=== PATIENT | male | born 1935 | race Caucasian/White ===

== ENCOUNTER → 2018-09-01 | Outpatient (CLI) | payer MEDICARE, OTHER ==
[~2018-09-01] MED LIST: Cipro500 MG PO; FAMO40 PO; Flagyl500 MG PO
== END | disposition home or self-care (01) ==
LOC: LAB 12:00 → LAB SHORT 12:00
DX: R30.0 Dysuria (principal); R10.9 Unspecified abdominal pain
CPT/HCPCS: 87086

== ENCOUNTER → 2019-05-06 | Outpatient (CLI) | payer MEDICARE, OTHER ==
[2019-05-07 10:05] LABS: Stool Occult Bld Immuno 1 Negative (NEGATIVE)
[2019-05-07 10:06] LABS: Stool Occult Bld Immuno 2 Negative (NEGATIVE)
== END | disposition home or self-care (01) ==
LOC: LAB 09:33 → LAB SHORT 09:33
PROVIDERS: Internal Medicine Gastroenterology
DX: K57.30 Diverticulosis of large intestine without perforation or abscess without bleeding (principal); D64.9 Anemia, unspecified
CPT/HCPCS: 82274

== ENCOUNTER 2019-10-31 11:34 | Day surgery (SDC) | payer MEDICARE, OTHER ==
[~2019-10-31] VITALS: Ht 177.8 cm; Wt 72.4 kg
[2019-10-31] MEDS ORDERED: TRAM50 PO (12:29)
[2019-10-31] MEDS ORDERED: TAMS.4ER PO (12:29)
== END 2019-10-31 13:37 | disposition home or self-care (01) ==
LOC: ORSCSDS 11:34
PROVIDERS: Anesthesiology
PROC: 3E0R33Z Introduction of Anti-inflammatory into Spinal Canal, Percutaneous Approach (ICD-10-PCS; principal; 2019-10-31 13:15)
DX: M54.16 Radiculopathy, lumbar region (principal); K21.9 Gastro-esophageal reflux disease without esophagitis; Z79.899 Other long term (current) drug therapy
CPT/HCPCS: J1040

== ENCOUNTER → 2019-12-18 | Outpatient (CLI) | payer MEDICARE, OTHER ==
[~2019-12-18] MED LIST changes: +TAMS.4ER PO; +TRAM50 PO
[2019-12-18 15:47] LABS: Adenovirus F 40/41 Not Detected (NOT DETECT); Astrovirus Not Detected (NOT DETECT); Campylobacter Sp Not Detected (NOT DETECT); Cryptosporidium Not Detected (NOT DETECT); Cyclospora Cayetanensis Not Detected (NOT DETECT); E. Coli O157 Not Detected (NOT DETECT); Entamoeba Histolytica Not Detected (NOT DETECT); Enteroaggregative E. coli-EAEC Not Detected (NOT DETECT); Enteropathogenic E. coli-EPEC Not Detected (NOT DETECT); Enterotoxigenic E. coli-ETEC Not Detected (NOT DETECT); Giardia Lamblia Not Detected (NOT DETECT); Norovirus GI/GII Not Detected (NOT DETECT); Plesiomonas Shigelloides Not Detected (NOT DETECT); Rotavirus A Not Detected (NOT DETECT); Salmonella Sp Not Detected (NOT DETECT); Sapovirus Not Detected (NOT DETECT); Shiga Toxin-prod E. coli-STEC Not Detected (NOT DETECT); Shigella/Enteroin E. coli-EIEC Not Detected (NOT DETECT); Vibrio Cholerae Not Detected (NOT DETECT); Vibrio Sp Not Detected (NOT DETECT); Yersinia Enterocolitica Not Detected (NOT DETECT)
== END ==
LOC: LAB 11:32 → LAB SHORT 11:32
PROVIDERS: Internal Medicine Gastroenterology
DX: R19.7 Diarrhea, unspecified (principal)
CPT/HCPCS: 0097U

== ENCOUNTER 2020-04-25 07:31 | Inpatient (IN) | payer MEDICARE, OTHER ==
[~2020-04-25] VITALS: Ht 177.8 cm; Wt 70.9 kg
[~2020-04-25 07:31] MED LIST changes: -FAMO40 PO
[2020-04-25 07:45] LABS: Calcium, Ionized (POC) 1.09 mmol/L (1.10-1.46); Chloride (POC) 104 mmol/L (98-108); Creatinine (POC) 0.9 mg/dL (0.8-1.3); Glucose (ISTAT POC) 158 mg/dL (70-99); Hemoglobin (POC) 13.6 g/dL (13.5-17.5); Potassium (POC) 3.8 mmol/L (3.5-5.5); Sodium (POC) 140 mmol/L (135-148); Total CO2 (POC) 22 mmol/L (21-32)
[2020-04-25 07:51] LABS: Hematocrit 39.7 % (37.0-53.0); Hemoglobin 13.1 g/dL (13.5-17.5); Mean Corpuscular HGB 32.4 pg (26.0-34.0); Mean Corpuscular Volume 98 fL (80-100); Mean Platelet Volume 9.4 fL (9.1-12.4); Platelet Count 187 K/mm3 (150-400); RDW Coefficient Variation 12.4 % (11.7-14.2); RDW Standard Deviation 44.9 fL (35.1-46.3); Red Blood Cell Count 4.04 M/mm3 (4.30-5.90); White Blood Cell Count 6.29 K/mm3 (4.00-11.30)
[2020-04-25 08:07] LABS: International Normalized Ratio 0.99; Prothrombin Time Results 10.6 Sec (9.7-11.5)
[2020-04-25 08:16] LABS: Alanine Aminotransfer (ALT/SGP 19 U/L (12-78); Albumin, Blood 3.5 g/dL (3.4-5.0); Alk Phos 84 U/L (50-136); Anion Gap 8 mmol/L (6-16); Aspartate Aminotrans (AST/SGOT 18 U/L (12-37); Bilirubin, Total 0.4 mg/dL (0.1-1.0); Blood Urea Nitrogen 18 mg/dL (8-24); Bun/Creatinine Ratio 20.1 (12.0-20.0); CHOL/HDL RATIO 4.4; CO2, Blood 25 mmol/L (21-32); Calcium, Blood 8.7 mg/dL (8.5-10.1); Chloride, Blood 108 mmol/L (98-108); Cholesterol 221 mg/dL (50-200); Globulin, Blood 3.5 g/dL (2.2-4.0); Glomerular Filtration Rate >60 (60-); Glucose, Blood 156 mg/dL (70-99); HDL Cholesterol 50 mg/dL (>39); LDL/HDL RATIO 2.9; Low Density Lipoprotein Chol 144 mg/dL (0-110); Magnesium, Blood 2.2 mg/dL (1.6-2.4); Potassium, Blood 3.8 mmol/L (3.5-5.5); Sodium, Blood 141 mmol/L (136-145); Triglycerides 133 mg/dL (30-160); Troponin I 0.074 ng/mL (0.000-0.040); Very Low Density Lipoprot Chol 26 mg/dL (6-32)
--- NOTE | 2020-04-25 09:08 | NUR ---
ARRIVES FROM HC: PT ARIVES FROM WITH A TR BAND IN PLACE. REPORT OF 12 ML OF AIR IN THE BAND AND PT RECEIVED A STENT TO THE LAD. REPORT OF MORE STENTS NEEDED AT A LATER TIME IN THE CIRC. PT IS A/O X 4. PT STATES A PERSISTANT ACHE IN HIS CHEST THAT IS NOTHING TO COMPLAIN ABOUT. PT EDUCATED ON THE CALL LIGHT. VSS AT THIS TIME. WILL CONTINUE TO MONITOR AND ASSESS FURTHER.
--- NOTE | 2020-04-25 11:30 | NUR ---
CHEST PAIN: PT STATES HE HAS AN ACHE IN HIS CHEST THAT GOES AROUND TO HIS BACK SHOLDERS. DENIES NEED FOR PAIN MEDS AND STATES HE WOULDN'T THINK ANYTHING ABOUT IT IF IT WASN'T FOR THIS INSTADENCE. EDUCATED PT IF IT GETS WORSE TO BE SURE TO LET THIS RN KNOW.
--- NOTE | 2020-04-25 11:40 | NUR ---
REMOVED 4ML OF AIR FROM TR BAND AT THIS TIME
--- NOTE | 2020-04-25 12:07 | NUR ---
ECHO AT THIS TIME
--- NOTE | 2020-04-25 15:15 | NUR ---
TR-BAND OFF: ALL AIR WAS REMOVED PRIOR TO 1400. NO BLEEDING NOTED. NO CHANGES NOTED. REMOVED TR-BAND AND PLACED CLEAR OPSITE DRESSING OVER INSERSION SITE. WILL CONTINUE TO MONITOR.
--- NOTE | 2020-04-25 16:15 | NUR ---
LOW URINE OUTPUT: CALLED DR NGUYEN TO NOTIFY OF URINE OUTPUT BEING NOTED AT APPROX 50-75ML SINCE PT RECEIVED THE 80MG OF IV LASIX. NEW ORDER FOR A STAT RENAL FUNCTION PANEL AND 100MG OF IV LASIX. WILL CONTINUE TO MONITOR.
--- NOTE | 2020-04-25 16:56 | NUR ---
UPDATE: PT GOT UP WITH PHYSICAL THERAPY AND STARTED TO HAVE SOME CHEST PAIN WITH SOME IRREGULAR BEATS. PAIN DID NOT STAY. PT LIED BACK DOWN AND STATES HE CONTINUES TO HAVE THE ACHE THAT RADIATES AROUND TO HIS BACK SHOLDERS, BUT HAS NOT GOTTEN WORSE T/O THE DAY JUST REMAINS. WILL CONTINUE TO MONITOR. VSS AND NO ACUTE DISTRESS NOTED. CALL LIGHT IN REACH.
--- NOTE | 2020-04-25 18:19 | NUR ---
DR TAN: CALLED AND TALKED TO DR TAN ABOUT PT EKG. STATED SHE WANTS THE EKG FOR IN THE MORNING. UPDATED HER ON THE PT PAIN/ACHES. NO NEW ORDERS.
[2020-04-26 03:41] LABS: BASOPHILS ABSOLUTE AUTO 0.04 K/mm3 (0.00-0.23); BASOPHILS PERCENT AUTO 0 % (0-2); EOSINOPHILS ABSOLUTE AUTO 0.18 K/mm3 (0.00-0.68); EOSINOPHILS PERCENT AUTO 2 % (0-6); Hematocrit 37.9 % (37.0-53.0); Hemoglobin 12.5 g/dL (13.5-17.5); IMMATURE GRAN ABSOLUTE AUTO 0.05 K/mm3 (0.00-0.10); IMMATURE GRAN PERCENT AUTO 1 % (0-1); LYMPHOCYTES ABSOLUTE AUTO 1.19 K/mm3 (0.84-5.20); LYMPHOCYTES PERCENT AUTO 13 % (21-46); MONOCYTES ABSOLUTE AUTO 1.01 K/mm3 (0.16-1.47); MONOCYTES PERCENT AUTO 11 % (4-13); Mean Corpuscular HGB 32.8 pg (26.0-34.0); Mean Corpuscular Volume 100 fL (80-100); NEUTROPHILS ABSOLUTE AUTO 6.78 K/mm3 (1.96-9.15); NEUTROPHILS PERCENT AUTO 73 % (41-73); Platelet Count 175 K/mm3 (150-400); RDW Coefficient Variation 12.9 % (11.7-14.2); RDW Standard Deviation 47.4 fL (35.1-46.3); Red Blood Cell Count 3.81 M/mm3 (4.30-5.90); White Blood Cell Count 9.25 K/mm3 (4.00-11.30)
[2020-04-26 04:08] LABS: Anion Gap 4 mmol/L (6-16); Blood Urea Nitrogen 18 mg/dL (8-24); Bun/Creatinine Ratio 19.4 (12.0-20.0); CO2, Blood 26 mmol/L (21-32); Calcium, Blood 8.4 mg/dL (8.5-10.1); Chloride, Blood 109 mmol/L (98-108); Creatinine, Blood 0.93 mg/dL (0.60-1.20); Glomerular Filtration Rate >60 (60-); Glucose, Blood 107 mg/dL (70-99); Potassium, Blood 4.2 mmol/L (3.5-5.5); Sodium, Blood 139 mmol/L (136-145)
[2020-04-26 04:38] LABS: Creatine Kinase MB 107.1 ng/mL (0.0-3.6)
[2020-04-26 05:00] LABS: CPK Creatine Kinase 1568 U/L (39-308); Creatine Kinase MB Index 6.8 (0.0-4.0)
--- NOTE | 2020-04-26 06:17 | NUR ---
PT AOX4. C/O SORENESS MIDSTERNAL TO [place]. STATES ITS DIFFERENT FROM THE PAIN HE FELT ON ADMISSION, LESS SEVERE AND NOT PAINFUL, REFUSED PRN TYLENOL. VSS THROUGHOUT SHIFT, TROP ELEVATED TO 94.[address] MUNGUIA NOTIFIED, ORDERS TO REPEAT AT 10 AM. IF TRENDING DOWN, CAN TX TO PCU. REPEAT EKG DONE THIS AM. R RADIAL SITE IS INTACT, NO HEMATOMA PRESENT.
--- NOTE | 2020-04-26 07:21 | NUR ---
ASSUMED CARE: RECEIVED BEDSIDE REPORT FROM NOC RN. PT WAKES EASILY UPON ENTERING THE ROOM AND PARTICIPATES IN REPORT. PT ASKS QUESTIONS REGUARDING HOW STENTS ARE PLACED AND HOW THE CLOT WAS REMOVED. ATTEMPTED TO EDUCATE PT REGUARDING HIS QUESTIONS. TROPONINS WERE NOTED TO BE ELIVATED AT 94.3 THIS MORNING, AND REPEAT LABS ARE ALREADY ORDERED FOR THIS MORNING. NO ACUTE DISTRESS NOTED AT THIS TIME. WILL CONTINUE TO MONITOR AND ASSESS FURHTER.
--- NOTE | 2020-04-26 07:37 | NUR ---
DR TAN: IN TALKING WITH PT EDUCATING HIM ON HIS CURRENT CONDITION AND DIAGNOSIS.
[2020-04-26 10:22] LABS: Creatine Kinase MB 64.2 ng/mL (0.0-3.6)
[2020-04-26 10:35] LABS: Creatine Kinase MB Index 5.4 (0.0-4.0); Troponin I 61.4 ng/mL (0.000-0.040)
--- NOTE | 2020-04-26 13:07 | NUR ---
CARDIAC REHAB: RECEIVED ORDER TO PLACE CARDIAC REHAB CONSULT TO HELP PT WITH RETURNING BACK TO BASELINE PHYSICAL ACTIVITY SAFELY.
--- NOTE | 2020-04-26 15:54 | NUR ---
REPORT TO PCU: REPORT GIVEN TO RN IN PCU PT GOING TO PCU 8
--- NOTE | 2020-04-26 18:13 | NUR ---
PT TRANSFERED FROM ICU. HE IS AWAKE, ALERT & X4, DENIES CP/SOB AT THIS TIME, VSS, RESP UNLABORED. RIGHT RADIAL SITE WNL, DRSG C/D/I, PT DENIES PAIN, CIRC WNL. PT ORIENTED TO ROOM. CALL LIGHT IN REACH. PT INSTRUCTED TO CALL FOR ASSISTANCE TO THE BATHROOM FOR SAFETY PURPOSES UNTIL DIZZINESS CLEARS. WCTM
--- NOTE | 2020-04-26 18:17 | NUR ---
SUMMARY NO ACUTE CHANGES NOTED SINCE PT WAS ADMITTED TO THE FLOOR. HE IS TOLERATING PO INTAKE, RESTING QUIETLY IN HIS ROOM, WATCHING TV AT THIS TIME. CALL MARIO PALOMINO & REPORT TO RAFAEL GONZALEZ.
[2020-04-27 04:19] LABS: BASOPHILS ABSOLUTE AUTO 0.03 K/mm3 (0.00-0.23); BASOPHILS PERCENT AUTO 0 % (0-2); EOSINOPHILS ABSOLUTE AUTO 0.39 K/mm3 (0.00-0.68); EOSINOPHILS PERCENT AUTO 5 % (0-6); Hemoglobin 13.2 g/dL (13.5-17.5); IMMATURE GRAN ABSOLUTE AUTO 0.02 K/mm3 (0.00-0.10); IMMATURE GRAN PERCENT AUTO 0 % (0-1); LYMPHOCYTES ABSOLUTE AUTO 1.49 K/mm3 (0.84-5.20); LYMPHOCYTES PERCENT AUTO 19 % (21-46); MONOCYTES ABSOLUTE AUTO 0.89 K/mm3 (0.16-1.47); MONOCYTES PERCENT AUTO 11 % (4-13); Mean Corpuscular HGB 32.7 pg (26.0-34.0); Mean Corpuscular Volume 99 fL (80-100); Mean Platelet Volume 9.6 fL (9.1-12.4); NEUTROPHILS PERCENT AUTO 65 % (41-73); Platelet Count 158 K/mm3 (150-400); RDW Standard Deviation 47.6 fL (35.1-46.3); Red Blood Cell Count 4.04 M/mm3 (4.30-5.90); White Blood Cell Count 8.02 K/mm3 (4.00-11.30)
[2020-04-27 04:42] LABS: Anion Gap 5 mmol/L (6-16); Blood Urea Nitrogen 17 mg/dL (8-24); CO2, Blood 24 mmol/L (21-32); Calcium, Blood 8.5 mg/dL (8.5-10.1); Chloride, Blood 109 mmol/L (98-108); Creatinine, Blood 0.89 mg/dL (0.60-1.20); Glomerular Filtration Rate >60 (60-); Glucose, Blood 97 mg/dL (70-99); Potassium, Blood 4.2 mmol/L (3.5-5.5); Sodium, Blood 138 mmol/L (136-145)
--- NOTE | 2020-04-27 05:48 | NUR ---
SHIFT SUMMARY PATIENT PLEASENT THROUGHOUT THE NIGHT. PATIENT APPEARED TO NAP ON AND OFF LAST NIGHT. PATIENT VERY EGAR TO GO HOME TODAY. ACCESS SITE TO RIGHT WRIST CONTINUES TO HAVE THE BRUISE TO THE FA BUT HAS NOT CHANGED SINCE INITAL ASSESSMENT. NO NEW BLEEDING NOTED. ARMBOARD IN PLACE. VITAL SIGNS CHARTED. WILL CONTINUE TO MONITOR PATIENT AND REPORT TO ONCOMING RN.
[2020-04-27] MEDS ORDERED: Bentyl10 MG PO (21:33)
[2020-04-27] MEDS ORDERED: FAMO40 PO (21:34)
[2020-04-27] MEDS ORDERED: ATOR20 PO (21:39)
[2020-04-27] MEDS ORDERED: CLOPIDOGREL75 MG PO (21:39)
[2020-04-27] MEDS ORDERED: Lisinopril2.5 MG PO (21:39)
[2020-04-27] MEDS ORDERED: METO25ER PO (21:40)
[2020-04-27] MEDS ORDERED: XARELTO20 MG PO (21:40)
== END 2020-04-27 09:47 | disposition home or self-care (01) | DRG 247 ==
LOC: ER 07:31 → ICUE 07:44 → ICUW 07:44 → ICUE 08:53 → PCU 04-26 16:18
PROVIDERS: Emergency Medicine; Internal Medicine Cardiovascular Disease; ADMIT Internal Medicine Interventional Cardiology
PROC: 4A023N7 Measurement of Cardiac Sampling and Pressure, Left Heart, Percutaneous Approach (ICD-10-PCS; principal; 2020-04-25)
PROC: 027034Z Dilation of Coronary Artery, One Artery with Drug-eluting Intraluminal Device, Percutaneous Approach (ICD-10-PCS; 2020-04-25)
PROC: 02703ZZ Dilation of Coronary Artery, One Artery, Percutaneous Approach (ICD-10-PCS; 2020-04-25)
PROC: B2111ZZ Fluoroscopy of Multiple Coronary Arteries using Low Osmolar Contrast (ICD-10-PCS; 2020-04-25)
PROC: B240ZZ3 Ultrasonography of Single Coronary Artery, Intravascular (ICD-10-PCS; 2020-04-25)
DX: I21.09 ST elevation (STEMI) myocardial infarction involving other coronary artery of anterior wall (principal); I50.20 Unspecified systolic (congestive) heart failure; K21.9 Gastro-esophageal reflux disease without esophagitis; M54.5 Low back pain; E78.5 Hyperlipidemia, unspecified; I11.0 Hypertensive heart disease with heart failure
CPT/HCPCS: 36415; 76937; 80047; 80048; 80053; 80061; 82550; 82553; 83036; 83735; 84484; 85014; 85025; 85027; 85347; 85610; 86850; 86900; 86901; 92920; 92978; 93005; 93010; 93454; 97162; 97530; 99152; 99153; 99285-25; A9270-GY; C1725; C1753; C1769; C1874; C1887; C1894; C8929; C9606; J1644; J2250; J2270; J3010; J7030; Q9957; Q9967

== ENCOUNTER 2020-04-27 19:24 | Inpatient (IN) | payer MEDICARE, OTHER ==
[~2020-04-27] VITALS: Ht 177.8 cm; Wt 72.7 kg
[2020-04-27 19:57] LABS: BASOPHILS ABSOLUTE AUTO 0.03 K/mm3 (0.00-0.23); BASOPHILS PERCENT AUTO 0 % (0-2); EOSINOPHILS ABSOLUTE AUTO 0.01 K/mm3 (0.00-0.68); EOSINOPHILS PERCENT AUTO 0 % (0-6); Hematocrit 38.9 % (37.0-53.0); Hemoglobin 12.6 g/dL (13.5-17.5); IMMATURE GRAN ABSOLUTE AUTO 0.05 K/mm3 (0.00-0.10); IMMATURE GRAN PERCENT AUTO 0 % (0-1); LYMPHOCYTES ABSOLUTE AUTO 0.56 K/mm3 (0.84-5.20); LYMPHOCYTES PERCENT AUTO 5 % (21-46); MONOCYTES PERCENT AUTO 9 % (4-13); Mean Corpuscular HGB 32.4 pg (26.0-34.0); Mean Corpuscular HGB Conc 32.4 g/dL (31.5-36.5); Mean Corpuscular Volume 100 fL (80-100); Mean Platelet Volume 9.8 fL (9.1-12.4); NEUTROPHILS ABSOLUTE AUTO 10.15 K/mm3 (1.96-9.15); NEUTROPHILS PERCENT AUTO 85 % (41-73); Platelet Count 164 K/mm3 (150-400); RDW Coefficient Variation 13.1 % (11.7-14.2); RDW Standard Deviation 48.3 fL (35.1-46.3); Red Blood Cell Count 3.89 M/mm3 (4.30-5.90)
[2020-04-27 20:12] LABS: International Normalized Ratio 1.05; Prothrombin Time Results 11.2 Sec (9.7-11.5)
[2020-04-27 20:18] LABS: Alanine Aminotransfer (ALT/SGP 40 U/L (12-78); Albumin, Blood 3.3 g/dL (3.4-5.0); Albumin/Globulin Ratio 0.9 (0.8-1.8); Alk Phos 84 U/L (50-136); Anion Gap 9 mmol/L (6-16); Aspartate Aminotrans (AST/SGOT 99 U/L (12-37); Bilirubin, Total 0.4 mg/dL (0.1-1.0); Blood Urea Nitrogen 27 mg/dL (8-24); Bun/Creatinine Ratio 22.7 (12.0-20.0); CO2, Blood 21 mmol/L (21-32); Calcium, Blood 8.7 mg/dL (8.5-10.1); Chloride, Blood 107 mmol/L (98-108); Creatinine, Blood 1.19 mg/dL (0.60-1.20); Globulin, Blood 3.6 g/dL (2.2-4.0); Glomerular Filtration Rate >60 (60-); Glucose, Blood 125 mg/dL (70-99); Potassium, Blood 3.9 mmol/L (3.5-5.5); Sodium, Blood 137 mmol/L (136-145); Total Protein, Blood 6.9 g/dL (6.4-8.2)
[2020-04-27] MEDS ORDERED: Bentyl10 MG PO (21:33)
[2020-04-27] MEDS ORDERED: FAMO40 PO (21:34)
[2020-04-27] MEDS ORDERED: Lisinopril2.5 MG PO (21:39)
[2020-04-27] MEDS ORDERED: ATOR20 PO (21:39)
[2020-04-27] MEDS ORDERED: CLOPIDOGREL75 MG PO (21:39)
[2020-04-27] MEDS ORDERED: XARELTO20 MG PO (21:40)
[2020-04-27] MEDS ORDERED: METO25ER PO (21:40)
[2020-04-27 23:11] LABS: CPK Creatine Kinase 355 U/L (39-308); Creatine Kinase MB 8.3 ng/mL (0.0-3.6); Creatine Kinase MB Index 2.3 (0.0-4.0)
--- NOTE | 2020-04-28 00:12 | NUR ---
PT TO ICU 10 FROM ED, PT MOVED TO ICU BED WITH SLIDER SHEET. PT HYPOTENSIVE ON ARRIVAL WITH MAP 55, RECEIVING FIRST UNIT PRBC. NS @ 100 ML/HR STARTED ON ARRIVAL. PT ALERT AND ORIENTED, REPORTS BLOODY STOOL THIS EVENING WITH NAUSEA, NO VOMITING, DIZZINESS WITH STANDING. PT DENIES ABDOMINAL PAIN AT REST OR WITH PALPATION. 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 SITE IT SOFT, NONTENDER, BRUISED, NO SIGN OF ACTIVE BLEEDING. SEE FULL ADMISSION ASSESSMENT.
--- NOTE | 2020-04-28 00:40 | NUR ---
PT CONTINUES TO BE HYPOTENSIVE, CALL TO DR. CARDOZA, ORDER FOR 500 ML NS BOLUS.
[2020-04-28 02:16] LABS: Hematocrit 37.7 % (37.0-53.0); Hemoglobin 12.3 g/dL (13.5-17.5)
[2020-04-28 02:29] LABS: International Normalized Ratio 1.04; Prothrombin Time Results 11.1 Sec (9.7-11.5)
[2020-04-28 02:33] LABS: Alanine Aminotransfer (ALT/SGP 33 U/L (12-78); Albumin, Blood 2.8 g/dL (3.4-5.0); Albumin/Globulin Ratio 0.8 (0.8-1.8); Alk Phos 73 U/L (50-136); Anion Gap 5 mmol/L (6-16); Aspartate Aminotrans (AST/SGOT 77 U/L (12-37); Bilirubin, Total 0.7 mg/dL (0.1-1.0); Blood Urea Nitrogen 21 mg/dL (8-24); Bun/Creatinine Ratio 21.5 (12.0-20.0); CO2, Blood 23 mmol/L (21-32); Calcium, Blood 7.7 mg/dL (8.5-10.1); Chloride, Blood 112 mmol/L (98-108); Creatinine, Blood 0.98 mg/dL (0.60-1.20); Globulin, Blood 3.3 g/dL (2.2-4.0); Glomerular Filtration Rate >60 (60-); Glucose, Blood 99 mg/dL (70-99); Magnesium, Blood 2.2 mg/dL (1.6-2.4); Potassium, Blood 4.2 mmol/L (3.5-5.5); Sodium, Blood 140 mmol/L (136-145); Total Protein, Blood 6.1 g/dL (6.4-8.2)
--- NOTE | 2020-04-28 03:40 | NUR ---
PT CONTINUES TO BE HYPOTENSIVE WITH MAP 50-55. ORDER FROM DR. CARDOZA TO BEGIN LEVOPHED @ 5 MCG/MIN VIA PIV.
--- NOTE | 2020-04-28 04:10 | NUR ---
PT HATTIE IN 40'S. 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 CALLED DR. CARDOZA, ORDER TO CONTINUE MONITORING, NO CARDIOLOGY CONSULT AT THIS TIME. PT DENIES CP OR SOB AT THIS TIME.
--- NOTE | 2020-04-28 05:29 | NUR ---
SHIFT SUMMARY MAP CURRENTLY 55-65 ON LEVOPHED 5 MCG/MIN. PT HR 42-60. PT SLEEPING WELL, CONTINUES TO DENY CHEST PAIN/PRESSURE, NAUSEA OR SHORTNESS OF BREATH. NS @100 ML/HR. NO EPISODES OF BLOODY STOOL SINCE ARRIVAL TO ICU. SEE PREVIOUS NOTES FROM THIS SHIFT. WILL REPORT TO DAYSHIFT NURSE.
[2020-04-28 06:20] LABS: Hematocrit 37.6 % (37.0-53.0); Hemoglobin 12.2 g/dL (13.5-17.5)
--- NOTE | 2020-04-28 07:29 | NUR ---
ASSUMED CARE PT. ALERT AND ORIENTED THIS AM. RESTING COMFORTABLY IN BED, DENIES ANY CHEST PAIN/PRESSURE DENIES ANY ABD PAIN. PT. DENIES ANY FURTHER BMS SINCE ADMIT. CURRENTLY ON RA. PT BT HYPERACTIVE, NO PAIN WITH PALPATION. HR 60S-70S, EKG DONE LAST NOC FOR BRADYCARDIA. PT. CURRENTLY ON LEVOPHED GTT AT 5MCG/KG/MIN THROUGH PERIPHERAL VESSEL. IV SITE ASSESED, NO SWELLING OR REDNESS, GOOD BLOOD RETURN NOTED. WILL CONTINUE TO MONITOR SITE CLOSELY. PT. CONTINUES WITH ARM BOARD IN PLACE TO RIGHT ARM S/P RADIAL ACCESS ON TUESDAY. SITE WNL, SMALL AMOUNT OF BRUISING NOTED. PT REQUEST TO KEEP ARM BOARD IN PLACE FOR REMINDER OF LIMITED USE OF THE RIGHT ARM. NADN. CALL LIGHT IN REACH.
--- NOTE | 2020-04-28 08:55 | NUR ---
CARDIOLOGY CONSULTED, DR. GABRIEL TO BE IN TO SEE PT.
--- NOTE | 2020-04-28 10:08 | NUR ---
DR. GABRIEL IN TO SEE PT ECHO ORDERD FOR TODAY AND PLAVIX GIVEN PER ORDER. LEVOPHED GTT TITRATD DOWN TO 2MCG. VSS. CALL LIGHT IN REACH.
[2020-04-28 10:20] LABS: Hematocrit 42.1 % (37.0-53.0); Hemoglobin 13.4 g/dL (13.5-17.5)
--- NOTE | 2020-04-28 10:55 | NUR ---
Echocardiogram using 0.50ml of Definity contrast performed.
--- NOTE | 2020-04-28 12:35 | NUR ---
DR. BRUMFIELD IN TO SEE PT OKAY TO HAVE CLEAR LIQUIDS AT THIS TIME.
[2020-04-28 14:28] LABS: Hematocrit 36.9 % (37.0-53.0)
--- NOTE | 2020-04-28 15:19 | NUR ---
ATTEMPTING TO TITRATE LEVOPHED GTT OFF LEVOPHED RANGING BETWEEN STAND BY TO 3 MCG/KG/HR WITH FREQUENT TITRATION. PT CONTINUES TO HAVE NO ADDITIONAL RECTAL BLEEDING AT THIS TIME.
--- NOTE | 2020-04-28 16:21 | NUR ---
CALL TO DR. GABRIEL REGARDING CONTINUED TITRATION OF LOW DOSE LEVOPHED PER DR. GABRIEL GIVE 500CC BOLUS NOW DUE TO ECHO RESULTS AND STOP LEVOPHED. CALL FOR ORDERS IF PT BECOMES SYMPTOMATIC WITH HYPOTENSION.
--- NOTE | 2020-04-28 17:15 | NUR ---
SHIFT SUMMARY PT REMAINS ALERT AND ORIENTED T/O SHIFT. NO BM/ RECTAL BLEEDING THIS SHIFT. PT. REMAINED HYPOTENSIVE T/O SHIFT PER DR. GABRIEL LEVOPHED GTT STOPPED, AND 500CC FLUID BOLUS GIVEN. PT. HAS NO DIFFICULTY REPOSITIONING SELF IN BED AND DANGLES AT BEDSIDE TO VOID. DR. BRUMFIELD IN TO SEE PT THIS SHIFT AND ADVANCED DIET TO CLEAR LIQUIDS. CALL LIGHT IN REACH. REPORT TO ONCOMING RN.
--- NOTE | 2020-04-28 20:01 | NUR ---
ASSUMED CARE OF PT, REPORT RCV'D FROM LISA MARINO. PT ALERT AND ORIENTED SITTING UP IN BED. PT CONTINUES TO DENY ABDOMINAL PAIN AT REST OR WITH PALPATION. PT HAS HAD NO BM'S SINCE ADMISSION. PT ABLE TO STABLY SIT AT SIDE OF BED/DANGLE TO USE URINAL. PT REPORTS OCCASIONAL "DIZZINESS" WHILE SITTING UP BUT STATES HE OVERALL "FEELS BETTER". NS@ 100 ML/HR INFUSING INTO RAC PIV. PT CONTINUES TO BE HYPOTENSIVE WITH SBP 80-90'S AND DPB 40-50'S MAP 55-60. PER DAYSHIFT NURSE, ORDER FROM DR. GABRIEL TO "LET BLOOD PRESSURE RIDE", UNLESS PT BECOMES SYMPTOMATIC. SEE FULL SHIFT ASSESSMENT.
--- NOTE | 2020-04-29 05:39 | NUR ---
SHIFT SUMMARY NO ACUTE CHANGES OVERNIGHT. PT REMAINED HYPOTENSIVE BUT REMAINED ASYMPTOMATIC. SBP 70-80'S, DBP 40'S, MAP 50-60'S. LEVOPHED REMAINS OFF. PT REMAINED ALERT AND ORIENTED, NO COMPLAINTS OF DIZZINESS, SOB. PT ABLE TO DANGLE AT SIDE OF BED TO USE URINAL INDEPENDENTLY. CONTINUES TO DENY ABDOMINAL PAIN AT REST OR WITH PALPATION. NO BM'S SINCE ADMISSION. PT REPORTS HE WAS CONSTIPATED X3 DAYS FROM PREVIOUS HOSPITAL VISIT AND HE "STRAINED" TO HAVE BM WHEN HE GOT HOME. PT EXPRESSED WORRY THAT HE LIVES ALONE HIS RECENTLY AND [place] [address] DISCUSSED POTENTIALLY HAVING A LIVE IN SCHOOL AIDE OR ASSISTED LIVING. PT UNINTERESTED IN THOSE OPTIONS AT THIS TIME BUT STATES WHILE HE DOESNT HAVE ANY FAMILY, HE HAS A FEW PEOPLE THAT CAN "CHECK ON HIM". SOCIAL SERVICE CONSULT IN PLACE. WILL REPORT TO DAYSNYFT NURSE.
[2020-04-29 07:37] LABS: Hematocrit 34.1 % (37.0-53.0); Mean Corpuscular HGB 32.2 pg (26.0-34.0); Mean Corpuscular HGB Conc 32.3 g/dL (31.5-36.5); Mean Corpuscular Volume 100 fL (80-100); Mean Platelet Volume 10.1 fL (9.1-12.4); Platelet Count 134 K/mm3 (150-400); RDW Coefficient Variation 14.3 % (11.7-14.2); RDW Standard Deviation 52.4 fL (35.1-46.3); Red Blood Cell Count 3.42 M/mm3 (4.30-5.90); White Blood Cell Count 5.98 K/mm3 (4.00-11.30)
[2020-04-29 08:03] LABS: BASOPHILS ABSOLUTE MAN 0.05 K/mm3 (0.00-0.23); BASOPHILS PERCENT MAN 1 % (0-2); EOSINOPHILS ABSOLUTE MAN 0.35 K/mm3 (0.00-0.68); EOSINOPHILS PERCENT MAN 6 % (0-6); LYMPHOCYTES ABSOLUTE MAN 0.95 K/mm3 (0.84-5.20); LYMPHOCYTES PERCENT MAN 16 % (21-46); MONOCYTES ABSOLUTE MAN 0.59 K/mm3 (0.16-1.47); MONOCYTES PERCENT MAN 10 % (4-13); SEG NEUTROPHILS PERCENT MAN 67 % (41-73); TOTAL CELLS COUNTED 100
[2020-04-29 08:08] LABS: Alanine Aminotransfer (ALT/SGP 29 U/L (12-78); Albumin, Blood 2.5 g/dL (3.4-5.0); Albumin/Globulin Ratio 0.9 (0.8-1.8); Alk Phos 71 U/L (50-136); Anion Gap 5 mmol/L (6-16); Aspartate Aminotrans (AST/SGOT 42 U/L (12-37); Bilirubin, Total 0.8 mg/dL (0.1-1.0); Blood Urea Nitrogen 11 mg/dL (8-24); Bun/Creatinine Ratio 13.9 (12.0-20.0); CO2, Blood 20 mmol/L (21-32); Calcium, Blood 7.6 mg/dL (8.5-10.1); Chloride, Blood 115 mmol/L (98-108); Creatinine, Blood 0.79 mg/dL (0.60-1.20); Globulin, Blood 2.9 g/dL (2.2-4.0); Glomerular Filtration Rate >60 (60-); Glucose, Blood 91 mg/dL (70-99); Magnesium, Blood 2.1 mg/dL (1.6-2.4); Sodium, Blood 140 mmol/L (136-145); Total Protein, Blood 5.4 g/dL (6.4-8.2)
--- NOTE | 2020-04-29 08:21 | NUR ---
ASSUMED CARE OF PT AT 0700. REPORT FROM ANDRE GONZALEZ. PT RESTING IN BED. WAKES c VERBAL STIMULI. FOLLOWS COMMANDS. DENIES COMPLAINTS OR NEEDS. ABD ROUND, SOFT, NON TENDER. BT X 4. PT ON CLEAR LIQUID DIET, REQUESTING REGULAR DIET, WILL DISCUSS c HOSP. LUNGS CLEAR. VSS AT THIS TIME, LEVOPHED D/C'D BY HARVEY. NSR, 70-80'S. NS INFUSING AT 100 ML/HR. PT AWAITING PT EVAL. WILL CONTINUE TO MONITOR.
--- NOTE | 2020-04-29 09:14 | NUR ---
PT UP TO TOLIET IN ROOM. DENIES LIGHTHEADNESS, DIZZINESS OR OTHER SYMPTOMS. ATTEMPTED TO HAVE BM, UNSUCCESSFUL. SMALL AMOUNT OF BRIGHT RED BLOOD c CLOTS WHEN PT WIPED. PT IN ROOM FOR EVAL.
--- NOTE | 2020-04-29 09:42 | NUR ---
DR SAPNA BLACKWELL PT STATUS CHANGED TO MED c TELE. PT WORKING c PHYSICAL THERAPY. DENIES DIZZINESS. DIET CHANGED.
--- NOTE | 2020-04-29 17:05 | NUR ---
SHIFT SUMMARY PT STATUS CHANGED TO MED c TELE THIS SHIFT. AMB INDEPENDENTLY IN ROOM. DENIES LIGHTHEADNESS OR DIZZINESS. VSS. GOOD APPETITE. IVF D/C'D. PT ATTEMPTED TWO BMS, ONLY SMALL AMOUNT OF BRIGHT RED BLOOD c CLOTS. NO STOOL. ASSESSMENT UNCHANGED. WILL CONTINUE TO MONITOR UNTIL REPORT TO ONCOMING NURSE.
--- NOTE | 2020-04-29 20:39 | NUR ---
ASSUMED CARE OF PT, REPORT RCV'D FROM LISA PALENCIA. PT ALERT AND ORIENTED, INDEPENDENT IN ROOM. PT DENIES ABDOMINAL OR CHEST PAIN AT THIS TIME. PT'S VSS AT THIS TIME. SEE FULL SHIFT ASSESSMENT.
--- NOTE | 2020-04-30 05:12 | NUR ---
SHIFT SUMMARY NO ACUTE CHANGES OVERNIGHT. PT DENIES NEEDS. VSS T/O SHIFT. WILL REPORT TO DAYSHIFT NURSE.
[2020-04-30 08:00] LABS: BASOPHILS ABSOLUTE AUTO 0.03 K/mm3 (0.00-0.23); BASOPHILS PERCENT AUTO 0 % (0-2); EOSINOPHILS ABSOLUTE AUTO 0.21 K/mm3 (0.00-0.68); EOSINOPHILS PERCENT AUTO 3 % (0-6); Hematocrit 36.5 % (37.0-53.0); Hemoglobin 12.2 g/dL (13.5-17.5); IMMATURE GRAN ABSOLUTE AUTO 0.04 K/mm3 (0.00-0.10); IMMATURE GRAN PERCENT AUTO 1 % (0-1); LYMPHOCYTES ABSOLUTE AUTO 0.85 K/mm3 (0.84-5.20); LYMPHOCYTES PERCENT AUTO 13 % (21-46); MONOCYTES ABSOLUTE AUTO 0.81 K/mm3 (0.16-1.47); MONOCYTES PERCENT AUTO 12 % (4-13); Mean Corpuscular HGB 32.5 pg (26.0-34.0); Mean Corpuscular HGB Conc 33.4 g/dL (31.5-36.5); Mean Corpuscular Volume 97 fL (80-100); Mean Platelet Volume 10.1 fL (9.1-12.4); NEUTROPHILS ABSOLUTE AUTO 4.87 K/mm3 (1.96-9.15); NEUTROPHILS PERCENT AUTO 72 % (41-73); Platelet Count 161 K/mm3 (150-400); RDW Coefficient Variation 13.7 % (11.7-14.2); RDW Standard Deviation 48.4 fL (35.1-46.3); Red Blood Cell Count 3.75 M/mm3 (4.30-5.90); White Blood Cell Count 6.81 K/mm3 (4.00-11.30)
--- NOTE | 2020-04-30 08:40 | NUR ---
ASSUMED CARE OF PT AT 0700. REPORT FROM ANDRE GONZALEZ. PT RESTING IN BED. DENIES NEEDS OR COMPLAINTS. INDEPENDENT IN ROOM. LUNGS CLEAR. ABD ROUND, SOFT, NON TENDER. BT X 4. PT STATES HE HAS STILL NOT BEEN ABLE TO HAVE BM SINCE ADMISSION. WILL CONTINUE ANTIBIOTICS THIS SHIFT. VSS. WILL CONTINUE TO MONITOR.
[2020-04-30] MEDS ORDERED: CIPR500 PO (13:27)
[2020-04-30] MEDS ORDERED: METR500 PO (13:27)
--- NOTE | 2020-04-30 14:17 | NUR ---
D/C INSTRUCTIONS REVIEWED c PT. PT TO MAKE F/U APPT c PCP, APPT MADE FOR CARDIOLOGY. MEDS REVIEWED. PT VERBALIZED UNDERSTANDING OF D/C INSTRUCTIONS. AMB OTD INDEPENDENTLY.
== END 2020-04-30 14:17 | disposition home or self-care (01) | DRG 393 ==
LOC: ER 19:24 → ICUW 22:31
PROVIDERS: Emergency Medicine; Internal Medicine Cardiovascular Disease; Internal Medicine Gastroenterology; Nurse Practitioner Acute Care; ADMIT Internal Medicine
PROC: 30233N1 Transfusion of Nonautologous Red Blood Cells into Peripheral Vein, Percutaneous Approach (ICD-10-PCS; principal; 2020-04-27)
DX: K55.9 Vascular disorder of intestine, unspecified (principal); I21.3 ST elevation (STEMI) myocardial infarction of unspecified site; R57.8 Other shock; D62 Acute posthemorrhagic anemia; I50.22 Chronic systolic (congestive) heart failure; Z95.5 Presence of coronary angioplasty implant and graft; I25.10 Atherosclerotic heart disease of native coronary artery without angina pectoris; K21.9 Gastro-esophageal reflux disease without esophagitis; K58.9 Irritable bowel syndrome, unspecified; Z79.02 Long term (current) use of antithrombotics/antiplatelets; I34.0 Nonrheumatic mitral (valve) insufficiency; R00.1 Bradycardia, unspecified; I11.0 Hypertensive heart disease with heart failure
CPT/HCPCS: 36415; 36430; 71046; 74177; 80053; 82550; 82553; 83605; 83735; 83880; 85007; 85014; 85018; 85025; 85027; 85610; 85730; 86850; 86900; 86901; 86923; 93005; 93010; 96360-59; 97162; 97530; 99285-25; A9270-GY; C8929; C9113; J0744; J2405; J7030; J7040; J7050; J7060; P9016; Q9957; Q9967

== ENCOUNTER 2020-07-12 13:01 | Emergency (ER) | payer MEDICARE, OTHER ==
[~2020-07-12] VITALS: Ht 177.8 cm; Wt 72.6 kg
[~2020-07-12 13:01] MED LIST changes: +ATOR20 PO; +Bentyl10 MG PO; +CIPR500 PO; +CLOPIDOGREL75 MG PO; +FAMO40 PO; +Lisinopril2.5 MG PO; +METO25ER PO; +METR500 PO; +XARELTO20 MG PO
[2020-07-12 13:39] LABS: BASOPHILS ABSOLUTE AUTO 0.04 K/mm3 (0.00-0.23); BASOPHILS PERCENT AUTO 1 % (0-2); EOSINOPHILS ABSOLUTE AUTO 0.06 K/mm3 (0.00-0.68); EOSINOPHILS PERCENT AUTO 1 % (0-6); Hematocrit 40.7 % (37.0-53.0); Hemoglobin 13.7 g/dL (13.5-17.5); IMMATURE GRAN ABSOLUTE AUTO 0.04 K/mm3 (0.00-0.10); IMMATURE GRAN PERCENT AUTO 1 % (0-1); LYMPHOCYTES ABSOLUTE AUTO 1.09 K/mm3 (0.84-5.20); LYMPHOCYTES PERCENT AUTO 17 % (21-46); MONOCYTES ABSOLUTE AUTO 0.53 K/mm3 (0.16-1.47); MONOCYTES PERCENT AUTO 8 % (4-13); Mean Corpuscular HGB 33.4 pg (26.0-34.0); Mean Corpuscular HGB Conc 33.7 g/dL (31.5-36.5); Mean Corpuscular Volume 99 fL (80-100); Mean Platelet Volume 9.5 fL (9.1-12.4); NEUTROPHILS ABSOLUTE AUTO 4.69 K/mm3 (1.96-9.15); NEUTROPHILS PERCENT AUTO 73 % (41-73); Platelet Count 188 K/mm3 (150-400); RDW Coefficient Variation 12.7 % (11.7-14.2); RDW Standard Deviation 46.8 fL (35.1-46.3); White Blood Cell Count 6.45 K/mm3 (4.00-11.30)
[2020-07-12 13:51] LABS: Alanine Aminotransfer (ALT/SGP 24 U/L (12-78); Albumin, Blood 3.9 g/dL (3.4-5.0); Albumin/Globulin Ratio 1.1 (0.8-1.8); Alk Phos 81 U/L (50-136); Anion Gap 5 mmol/L (6-16); Aspartate Aminotrans (AST/SGOT 21 U/L (12-37); Bilirubin, Total 0.4 mg/dL (0.1-1.0); Blood Urea Nitrogen 19 mg/dL (8-24); Bun/Creatinine Ratio 20.6 (12.0-20.0); CO2, Blood 27 mmol/L (21-32); Calcium, Blood 9.3 mg/dL (8.5-10.1); Chloride, Blood 107 mmol/L (98-108); Creatinine, Blood 0.92 mg/dL (0.60-1.20); Globulin, Blood 3.5 g/dL (2.2-4.0); Glomerular Filtration Rate >60 (60-); Glucose, Blood 92 mg/dL (70-99); Sodium, Blood 139 mmol/L (136-145); Total Protein, Blood 7.4 g/dL (6.4-8.2)
[2020-07-12] MEDS ORDERED: HYDCHL25 PO (14:40)
[2020-07-12] MEDS ORDERED: HYDPAM25 PO (14:47)
[2020-07-12] MEDS ORDERED: Bentyl10 MG (14:48)
[2020-07-12 15:08] LABS: Source, Urine Clean Catch
[2020-07-12 15:16] LABS: Appearance, Urine Clear (Clear); Bilirubin, Urine Neg (Neg); Blood, Urine 1+ (Neg); Color, Urine Yellow (P-Yellow); Glucose Qualitative, Urine Neg (Neg); Ketones, Urine 1+ (Neg); Leukocyte Esterase, Urine Neg (Neg); Nitrite, Urine Neg (Neg); Protein, Urine Neg (Neg); Specific Gravity, Urine 1.015 (1.003-1.022); Urobilinogen, Urine NORM (Normal); pH, Urine 6.5 (5.0-8.0)
[2020-07-12 15:55] LABS: Red Blood Cells, Urine 0-2 /hpf (0-2); White Blood Cells, Urine 0-2 /hpf (0-5)
[2020-07-12 15:56] LABS: Bacteria Few /hpf; Squamous Epithelial Cells Rare /hpf (Few)
[2020-07-12] MEDS ORDERED: Carafate1 GM/10 ML PO (16:03)
== END 2020-07-12 16:44 | disposition home or self-care (01) ==
LOC: ER 13:01
PROVIDERS: Physician Assistant
DX: K92.2 Gastrointestinal hemorrhage, unspecified (principal); K21.9 Gastro-esophageal reflux disease without esophagitis; I25.10 Atherosclerotic heart disease of native coronary artery without angina pectoris; Z95.5 Presence of coronary angioplasty implant and graft; Z79.02 Long term (current) use of antithrombotics/antiplatelets; Z79.899 Other long term (current) drug therapy; Z79.01 Long term (current) use of anticoagulants; Z88.0 Allergy status to penicillin; Z88.5 Allergy status to narcotic agent
CPT/HCPCS: 36415; 80053; 81001; 82272; 85025; 86850; 86900; 86901; 93005; 93010; 99284-25

== ENCOUNTER 2020-11-24 19:18 | Observation (INO) | payer MEDICARE, OTHER ==
[~2020-11-24] VITALS: Ht 177.8 cm; Wt 74.9 kg
[~2020-11-24 19:18] MED LIST changes: +ATOR40TA PO; +Aspir 8181 MG PO; +Bentyl10 MG; +CLOP75 PO; +Carafate1 GM/10 ML PO; +HYDCHL25 PO; +HYDHCL25 PO; +HYDPAM25 PO; +ZOLP10 PO
[2020-11-24 19:47] LABS: BASOPHILS ABSOLUTE AUTO 0.05 K/mm3 (0.00-0.23); BASOPHILS PERCENT AUTO 1 % (0-2); EOSINOPHILS ABSOLUTE AUTO 0.18 K/mm3 (0.00-0.68); EOSINOPHILS PERCENT AUTO 3 % (0-6); Hematocrit 33.2 % (37.0-53.0); Hemoglobin 10.7 g/dL (13.5-17.5); IMMATURE GRAN ABSOLUTE AUTO 0.01 K/mm3 (0.00-0.10); IMMATURE GRAN PERCENT AUTO 0 % (0-1); LYMPHOCYTES PERCENT AUTO 20 % (21-46); MONOCYTES ABSOLUTE AUTO 0.71 K/mm3 (0.16-1.47); MONOCYTES PERCENT AUTO 13 % (4-13); Mean Corpuscular HGB 32.3 pg (26.0-34.0); Mean Corpuscular HGB Conc 32.2 g/dL (31.5-36.5); Mean Corpuscular Volume 100 fL (80-100); Mean Platelet Volume 9.5 fL (9.1-12.4); NEUTROPHILS ABSOLUTE AUTO 3.46 K/mm3 (1.96-9.15); NEUTROPHILS PERCENT AUTO 63 % (41-73); Platelet Count 206 K/mm3 (150-400); RDW Coefficient Variation 11.9 % (11.7-14.2); RDW Standard Deviation 44.6 fL (35.1-46.3); Red Blood Cell Count 3.31 M/mm3 (4.30-5.90); White Blood Cell Count 5.51 K/mm3 (4.00-11.30)
[2020-11-24 20:06] LABS: Alanine Aminotransfer (ALT/SGP 21 U/L (12-78); Albumin, Blood 3.3 g/dL (3.4-5.0); Alk Phos 66 U/L (50-136); Anion Gap 4 mmol/L (6-16); Aspartate Aminotrans (AST/SGOT 15 U/L (12-37); Bilirubin, Total 0.2 mg/dL (0.1-1.0); Blood Urea Nitrogen 22 mg/dL (8-24); Bun/Creatinine Ratio 23.4 (12.0-20.0); CO2, Blood 28 mmol/L (21-32); Calcium, Blood 8.7 mg/dL (8.5-10.1); Chloride, Blood 109 mmol/L (98-108); Creatinine, Blood 0.94 mg/dL (0.60-1.20); Globulin, Blood 3.3 g/dL (2.2-4.0); Glomerular Filtration Rate >60 (60-); Glucose, Blood 94 mg/dL (70-99); Potassium, Blood 4.1 mmol/L (3.5-5.5); Sodium, Blood 141 mmol/L (136-145); Total Protein, Blood 6.6 g/dL (6.4-8.2)
[2020-11-24] MEDS ORDERED: ATORVASTATIN CA20 MG PO (20:39)
[2020-11-24] MEDS ORDERED: ZOLP5 PO (20:39)
[2020-11-24] MEDS ORDERED: PEPCID40 MG PO (20:40)
[2020-11-25 05:03] LABS: BASOPHILS ABSOLUTE AUTO 0.07 K/mm3 (0.00-0.23); BASOPHILS PERCENT AUTO 1 % (0-2); EOSINOPHILS PERCENT AUTO 6 % (0-6); Hematocrit 31.5 % (37.0-53.0); Hemoglobin 10.4 g/dL (13.5-17.5); IMMATURE GRAN ABSOLUTE AUTO 0.01 K/mm3 (0.00-0.10); IMMATURE GRAN PERCENT AUTO 0 % (0-1); LYMPHOCYTES ABSOLUTE AUTO 1.21 K/mm3 (0.84-5.20); LYMPHOCYTES PERCENT AUTO 24 % (21-46); MONOCYTES ABSOLUTE AUTO 0.71 K/mm3 (0.16-1.47); MONOCYTES PERCENT AUTO 14 % (4-13); Mean Corpuscular HGB 32.8 pg (26.0-34.0); Mean Corpuscular Volume 99 fL (80-100); Mean Platelet Volume 9.1 fL (9.1-12.4); NEUTROPHILS ABSOLUTE AUTO 2.75 K/mm3 (1.96-9.15); NEUTROPHILS PERCENT AUTO 54 % (41-73); Platelet Count 168 K/mm3 (150-400); RDW Coefficient Variation 11.9 % (11.7-14.2); RDW Standard Deviation 43.1 fL (35.1-46.3); Red Blood Cell Count 3.17 M/mm3 (4.30-5.90); White Blood Cell Count 5.05 K/mm3 (4.00-11.30)
[2020-11-25 05:19] LABS: Anion Gap 5 mmol/L (6-16); Blood Urea Nitrogen 17 mg/dL (8-24); CO2, Blood 25 mmol/L (21-32); Calcium, Blood 8.6 mg/dL (8.5-10.1); Chloride, Blood 112 mmol/L (98-108); Creatinine, Blood 0.81 mg/dL (0.60-1.20); Glomerular Filtration Rate >60 (60-); Glucose, Blood 91 mg/dL (70-99); Potassium, Blood 4.2 mmol/L (3.5-5.5); Sodium, Blood 142 mmol/L (136-145)
--- NOTE | 2020-11-25 05:24 | NUR ---
SHIFT SUMMARY- PT. NEW ADMIT LAST NIGHT FROM ED. A&O, PLEASANT, AND COOPERATIVE WITH CARE. SBA/INDEP WITH BRP. HAD NO COMPLAINTS T/O THE NIGHT, DENIED BM OR S/S OF RECTAL BLEEDING LAST NIGHT. PT. APPEARED TO HAVE RESTED COMFORTABLY IN BED, NO APPARENT DISTRESS NOTED. CONSULT FOR GI IN PLACE. VSS. CALL LIGHT WITHIN REACH AND SIDE RAILS UPX2. WILL CONT TO MONITOR.
[2020-11-25 12:38] LABS: Hematocrit 33.4 % (37.0-53.0)
--- NOTE | 2020-11-25 15:07 | NUR ---
DISCHARGE PT IS A/O X4, STATE NO DISCOMFORT. HE CONTINUES TO HAVE SM AMT RECTAL BLEEDING HOWEVER STATE THIS HAS DECREASED SINCE ADMIT LAST NOC. H&H 10.4/31.[address] ADAMS IN TO SEE PT THIS AM, STATE IF NOON H&H STABLE HE MAY GO HOME, IT WAS .4, DR AGUIRRE D/C ORDER & REVIEW INSTRUCT w PT. IV D/C INTACT. PT CONTACT FRIEND FOR TRANSPORT HOME. F/U APPT ARRANGED w PCP, GI & CARDIOLOGY. D/C INSTRUCT REVIEWED w EMPHASIS ON STOPPING ASA & F/U w GI IN [place] [facility] & DR KING. PT IS PLEASANT/APPRECIATIVE, STATE SATISFACTION.W/C ESCORT FROM HOSP PROVIDED.
== END 2020-11-25 15:15 | disposition home or self-care (01) ==
LOC: ER 19:18 → ERHOLD 19:19 → MEDS 19:19
PROVIDERS: Emergency Medicine; ADMIT Family Medicine
DX: K62.5 Hemorrhage of anus and rectum (principal); D62 Acute posthemorrhagic anemia; D12.3 Benign neoplasm of transverse colon; I11.0 Hypertensive heart disease with heart failure; I50.20 Unspecified systolic (congestive) heart failure; I25.10 Atherosclerotic heart disease of native coronary artery without angina pectoris; K21.9 Gastro-esophageal reflux disease without esophagitis; Z79.01 Long term (current) use of anticoagulants; Z79.899 Other long term (current) drug therapy; Z85.46 Personal history of malignant neoplasm of prostate
CPT/HCPCS: 36415; 80048; 80053; 85014; 85018; 85025; 86850; 86900; 86901; 93005; 93010; 99285-25; A9270; G0378

== ENCOUNTER 2021-10-21 08:12 | Day surgery (SDC) | payer MEDICARE, OTHER ==
[~2021-10-21] VITALS: Ht 177.8 cm; Wt 74.9 kg
[~2021-10-21 08:12] MED LIST changes: +ATORVASTATIN CA20 MG PO; +PEPCID40 MG PO; +ZOLP5 PO
[2021-10-21] MEDS ORDERED: TRAZ50 (08:55)
== END 2021-10-21 10:15 | disposition home or self-care (01) ==
LOC: ORSCSDS 08:12
PROVIDERS: Internal Medicine Gastroenterology
PROC: 0DB58ZX Excision of Esophagus, Via Natural or Artificial Opening Endoscopic, Diagnostic (ICD-10-PCS; principal; 2021-10-21 09:45)
DX: K22.70 Barrett's esophagus without dysplasia (principal); K22.2 Esophageal obstruction; Z87.11 Personal history of peptic ulcer disease; Z79.01 Long term (current) use of anticoagulants; Z79.899 Other long term (current) drug therapy
CPT/HCPCS: 88305; J2704; J7120

== ENCOUNTER → 2022-08-16 | Outpatient (CLI) | payer MEDICARE, OTHER ==
[~2022-08-16] MED LIST changes: +TRAZ50
== END ==
LOC: LAB 10:08 → LAB SHORT 10:08
PROVIDERS: Internal Medicine
DX: L74.9 Eccrine sweat disorder, unspecified (principal)
CPT/HCPCS: 81050; 83497

== ENCOUNTER 2023-05-12 10:22 | Day surgery (SDC) | payer MEDICARE, OTHER ==
[~2023-05-12] VITALS: Ht 175.3 cm; Wt 76.2 kg
[2023-05-12] VITALS (8 sets, daily range): BP systolic 80–117; BP diastolic 56–92
[~2023-05-12 10:22] MED LIST changes: +ALEN70 PO; +AMOCLA875 PO; +IRON BISGLYCINA28 MG PO; +LANS15EC PO; +MELATONIN5 M1 PO; +MIRALAX17 GM PO
--- NOTE | 2023-05-12 16:11 | NUR ---
1530 Pt arrived from the [facility]. Awake, alert and oriented. States mild pain on the left chest wall. Adhesive white dressing is clean, dry and intact. Ice pack placed over the surgical site and sling placed. Instructions given to the patient not to get up without staff in the room with him. Also given instructions not to use the left arm but just to rest it in this immediate post op time frame. Pt is noted paced by telemetry monitoring. Blood pressure noted to be low. Pt was given water to drink and a light snack.
--- NOTE | 2023-05-12 17:09 | NUR ---
Ambulatory to bathroom, independently with supervision. sTates that he feels fine.
[2023-05-13 03:42] VITALS: BP 117/68
--- NOTE | 2023-05-13 05:10 | NUR ---
SHIFT SUMMARY NO ACUTE CHANGES THIS SHIFT. AXO. VSS. PACED RHYTHM. SURGICAL SITE WITHOUT EXCESS SWELLING, REDNESS. SITE IS TENDER, PT REQUIRED 2 MEDS PER EMAR FOR PAIN MANAGEMENT BUT HAS OTHERWISE BEEN ABLE TO REST THIS SHIFT. PT BEING CAREFUL TO NOT USE ARM. USING CALL LIGHT APPROPRIATELY. BED ALARM ON.
[2023-05-13 07:34] VITALS: BP 111/58
[2023-05-13 11:12] VITALS: BP 113/57
[2023-05-13] MEDS ORDERED: CEPH500 PO (11:51)
--- NOTE | 2023-05-13 13:25 | NUR ---
DISCHARGE: DR. ALVAREZ SAW PT THIS MORNING. VSS, PT HAS DENIED CP. DRESSING AT L UPPER CHEST WNL. PACKET PRINTED AND PT EDUCATED. PT GIVEN PACE MAKER ID CARD AND SLING AT DISCHARGE. IV DC'D BY SAL, ABY AND PT LEFT UNIT ON WHEELCHAIR WITH SAL AT ABOUT 1245.
== END 2023-05-13 12:27 | disposition home or self-care (01) ==
LOC: MHTC 10:22 → PCU 15:23 → MHTC 05-13 12:27
DX: I44.1 Atrioventricular block, second degree (principal); R09.89 Other specified symptoms and signs involving the circulatory and respiratory systems; I45.5 Other specified heart block; I49.5 Sick sinus syndrome; E78.5 Hyperlipidemia, unspecified; K21.9 Gastro-esophageal reflux disease without esophagitis; J45.909 Unspecified asthma, uncomplicated; I25.10 Atherosclerotic heart disease of native coronary artery without angina pectoris; I11.0 Hypertensive heart disease with heart failure; I50.20 Unspecified systolic (congestive) heart failure; I47.1 Supraventricular tachycardia; I73.9 Peripheral vascular disease, unspecified; Z88.1 Allergy status to other antibiotic agents; Z88.6 Allergy status to analgesic agent; Z95.0 Presence of cardiac pacemaker
CPT/HCPCS: 33208; 71045; 76937; 93005; 93010; 99152; 99153; A9270; C1769; C1781; C1785; C1894; C1898; J0690; J1644; J2250; J3010; J7040

== ENCOUNTER → 2024-03-19 | Outpatient (CLI) | payer MEDICARE, OTHER ==
[~2024-03-19] MED LIST changes: +CEPH500 PO
[2024-03-19 10:03] LABS: BASOPHILS ABSOLUTE AUTO 0.05 K/mm3 (0.00-0.23); BASOPHILS PERCENT AUTO 1 % (0-2); EOSINOPHILS ABSOLUTE AUTO 0.11 K/mm3 (0.00-0.68); EOSINOPHILS PERCENT AUTO 2 % (0-6); Hematocrit 38.7 % (37.0-53.0); IMMATURE GRAN ABSOLUTE AUTO 0.01 K/mm3 (0.00-0.10); IMMATURE GRAN PERCENT AUTO 0 % (0-1); LYMPHOCYTES ABSOLUTE AUTO 0.99 K/mm3 (0.84-5.20); LYMPHOCYTES PERCENT AUTO 16 % (21-46); MONOCYTES ABSOLUTE AUTO 0.47 K/mm3 (0.16-1.47); MONOCYTES PERCENT AUTO 8 % (4-13); Mean Corpuscular HGB 33.6 pg (26.0-34.0); Mean Corpuscular HGB Conc 33.6 g/dL (31.5-36.5); Mean Corpuscular Volume 100 fL (80-100); Mean Platelet Volume 8.8 fL (9.1-12.4); NEUTROPHILS ABSOLUTE AUTO 4.46 K/mm3 (1.96-9.15); NEUTROPHILS PERCENT AUTO 73 % (41-73); Platelet Count 222 K/mm3 (150-400); RDW Standard Deviation 47.7 fL (35.1-46.3); Red Blood Cell Count 3.87 M/mm3 (4.30-5.90); White Blood Cell Count 6.09 K/mm3 (4.00-11.30)
[2024-03-19 10:26] LABS: Albumin, Blood 3.2 g/dL (3.4-5.0); Albumin/Globulin Ratio 0.8 (0.8-1.8); Bilirubin, Total 0.4 mg/dL (0.1-1.0); Bun/Creatinine Ratio 12.3 (12.0-20.0); Calcium, Blood 9.2 mg/dL (8.5-10.1); Creatinine, Blood 1.06 mg/dL (0.60-1.20); Globulin, Blood 3.9 g/dL (2.2-4.0); Potassium, Blood 4.4 mmol/L (3.5-5.5); Thyroid Stimulating Hormone 1.892 uIU/mL (0.360-4.800); Total Protein, Blood 7.1 g/dL (6.4-8.2)
== END | disposition home or self-care (01) ==
LOC: LAB 09:59 → LAB SHORT 09:59
PROVIDERS: Physician Assistant
DX: R53.83 Other fatigue (principal)
CPT/HCPCS: 80053; 84443; 85025